=== PATIENT | female | born 1975 | race Caucasian/White ===

== ENCOUNTER 2019-09-06 16:25 | Emergency (ER) | payer OTHER ==
[~2019-09-06] VITALS: Ht 160 cm; Wt 59.0 kg
[~2019-09-06 16:25] MED LIST: CIPROFLOXACIN500 M1 PO; DEPAKOTE ER500 MG PO; DOXYCYCLINE 10100 MG PO; IBUPROFEN 600600 M1 PO; NORCO 5-325 TA1 EACH PO; NUVESSA5 GM PO; PRENATAL PO; PROTONIX40 MG PO; TRAZODONE 150150 M1 PO; VICODIN 5-5001 EACH PO; ZANTAC 150MG T150 M1 PO; ZOFRAN ODT4 MG PO; ZOFRAN4 MG PO
[2019-09-06 17:41] VITALS: BP 140/93
== END 2019-09-06 17:45 | disposition home or self-care (01) ==
LOC: ER 16:25
DX: Z13.89 Encounter for screening for other disorder (principal); F17.210 Nicotine dependence, cigarettes, uncomplicated

== ENCOUNTER 2019-10-18 11:37 | Emergency (ER) | payer OTHER ==
[~2019-10-18] VITALS: Ht 160 cm; Wt 59.0 kg
[2019-10-18] MEDS ORDERED: MUPIROCIN15 GM TOP ×2 (12:19→12:35)
[2019-10-18] MEDS ORDERED: KEFLEX500 M1 PO ×2 (12:19→12:35)
[2019-10-18 12:27] VITALS: BP 150/107
== END 2019-10-18 12:39 | disposition home or self-care (01) ==
LOC: ER 11:37
DX: L01.00 Impetigo, unspecified (principal); K12.1 Other forms of stomatitis; R23.4 Changes in skin texture; F17.210 Nicotine dependence, cigarettes, uncomplicated; Z86.14 Personal history of Methicillin resistant Staphylococcus aureus infection; Z79.2 Long term (current) use of antibiotics

== ENCOUNTER 2020-06-03 17:10 | Emergency (ER) | payer OTHER ==
[~2020-06-03] VITALS: Ht 160 cm; Wt 59.0 kg
[~2020-06-03 17:10] MED LIST changes: +KEFLEX500 M1 PO; +MUPIROCIN15 GM TOP
[2020-06-03] MEDS ORDERED: MOBIC7.5 MG PO (19:04)
[2020-06-03 19:09] VITALS: BP 138/76
== END 2020-06-03 19:09 | disposition home or self-care (01) ==
LOC: ER 17:10
DX: M79.602 Pain in left arm (principal); F17.210 Nicotine dependence, cigarettes, uncomplicated; W01.0XXA Fall on same level from slipping, tripping and stumbling without subsequent striking against object, initial encounter; Y93.89 Activity, other specified; Y92.89 Other specified places as the place of occurrence of the external cause; Y99.8 Other external cause status

== ENCOUNTER 2020-09-02 03:09 | Emergency (ER) | payer OTHER ==
[~2020-09-02] VITALS: Ht 160 cm; Wt 59.0 kg
[~2020-09-02 03:09] MED LIST changes: +MOBIC7.5 MG PO
[2020-09-02 04:00] VITALS: BP 138/90
[2020-09-02] MEDS ORDERED: NAPROXEN250 MG PO (04:41)
[2020-09-02] MEDS ORDERED: TYLENOL325 M1 PO (04:41)
== END 2020-09-02 05:16 | disposition home or self-care (01) ==
LOC: ER 03:09
DX: S00.83XA Contusion of other part of head, initial encounter (principal); R04.0 Epistaxis; F17.210 Nicotine dependence, cigarettes, uncomplicated; Z87.820 Personal history of traumatic brain injury; W22.03XA Walked into furniture, initial encounter; Y93.89 Activity, other specified; Y92.89 Other specified places as the place of occurrence of the external cause; Y99.9 Unspecified external cause status

== ENCOUNTER 2021-02-26 21:56 | Emergency (ER) | payer OTHER ==
[~2021-02-26 21:56] MED LIST changes: +NAPROXEN250 MG PO; +TYLENOL325 M1 PO
[2021-02-26 22:00] VITALS: BP 157/108
== END 2021-02-27 00:26 | disposition left against medical advice (07) ==
LOC: ER 21:56
DX: S70.02XA Contusion of left hip, initial encounter (principal); S00.81XA Abrasion of other part of head, initial encounter; F17.210 Nicotine dependence, cigarettes, uncomplicated; F15.10 Other stimulant abuse, uncomplicated; Z98.890 Other specified postprocedural states; Z79.899 Other long term (current) drug therapy; Z79.1 Long term (current) use of non-steroidal anti-inflammatories (NSAID); V87.8XXA Person injured in other specified noncollision transport accidents involving motor vehicle (traffic), initial encounter; Y93.89 Activity, other specified; Y92.89 Other specified places as the place of occurrence of the external cause; Y99.8 Other external cause status